=== PATIENT | female | born 1945 | race Caucasian/White ===

== ENCOUNTER → 2024-08-28 10:28 | Outpatient (REF) | payer MEDICARE, OTHER, SELFPAY ==
[2024-08-28 11:06] LABS: % Basophils 1.6 % (0-2); % Immature Granulocytes 0.5 % (0-0.5); % Lymphocytes 35.5 % (20.5-51.1); % Monocytes 8.6 % (1.7-9.3); % Neutrophils 46.8 % (42.2-75.2); Absolute Basophils 0.1 10^3/uL (0-0.2); Absolute Eosinophils 0.4 10^3/uL (0-0.7); Absolute Monocytes 0.5 10^3/uL (0.1-0.6); Absolute Neutrophils 2.6 10^3/uL (1.4-6.5); Hematocrit 32.9 % (37.0-47.0); Hemoglobin 10.9 g/dL (12.0-16.0); Mean Corp Hgb Conc. 33.1 g/dL (33.0-37.0); Mean Corpuscular Hgb 28.6 pg (27.0-31.0); Mean Corpuscular Volume 86.4 fL (81.0-99.0); Mean Platelet Volume 10.8 fL (7.4-10.4); Nucleated Red Blood Cells % 0 %; Platelet Count 207 10^3/uL (130-400); Red Blood Cell Count 3.81 10^6/uL (4.20-5.40); Red Cell Dist. Width 13.1 % (11.5-14.5); White Blood Cell Count 5.6 10^3/uL (4.8-10.8)
[2024-08-28 11:35] LABS: Glycohemoglobin (HgbA1c) 6.9 % (4.0-5.6)
[2024-08-28 14:02] LABS: ALT (SGPT) 34 U/L (0-35); AST (SGOT) 35 U/L (14-36); Albumin 3.7 g/dl (3.5-5.0); Alkaline Phosphatase 46 U/L (38-126); Blood Urea Nitrogen 30 mg/dl (7-17); Calcium 8.6 mg/dl (8.4-10.2); Carbon Dioxide 22 mmol/L (22-30); Chloride 110 mmol/L (98-107); Glucose 124 mg/dl (70-99); HDL Cholesterol 62 mg/dl; LDL Cholesterol, Calculated 81 mg/dl; Magnesium 1.7 mg/dl (1.6-2.3); Potassium 5.3 mmol/L (3.5-5.1); Sodium 138 mmol/L (135-145); Total Bilirubin 0.4 mg/dl (0.2-1.3); Total Cholesterol 166 mg/dl (50-199); Total Protein 5.9 g/dl (6.3-8.2); Triglyceride 115 mg/dl (10-149); Very Low Density Lipoprotein 23 mg/dl (0-30); eGFR 58.02
[2024-08-28 14:46] LABS: Free T4 1.07 ng/dl (0.78-2.19); Vitamin D, 25-OH*** 94.9 ng/mL (30-80)
[2024-08-28 14:59] LABS: TSH 4.53 uIU/ml (0.47-4.68)
== END ==
LOC: OLABHEARBC 10:28
PROVIDERS: ATTENDING PHYSICIAN Hospitalist
DX: I10 Essential (primary) hypertension (principal); E03.9 Hypothyroidism, unspecified; M81.0 Age-related osteoporosis without current pathological fracture; N18.9 Chronic kidney disease, unspecified; E78.5 Hyperlipidemia, unspecified; I25.10 Atherosclerotic heart disease of native coronary artery without angina pectoris; E11.9 Type 2 diabetes mellitus without complications; E55.9 Vitamin D deficiency, unspecified
CPT/HCPCS: 36415; 80053; 80061; 82306; 83036; 83735; 84439; 84443; 85025

== ENCOUNTER → 2024-11-16 13:08 | Outpatient (REF) | payer MEDICARE, OTHER, SELFPAY | LOC: HWRAD 13:08 | PROVIDERS: ATTENDING PHYSICIAN Hospitalist | DX: M25.572 Pain in left ankle and joints of left foot (principal) | CPT/HCPCS: 73600; 73620 ==

== ENCOUNTER 2024-12-08 06:11 | Emergency (ER) | payer MEDICARE, OTHER, SELFPAY ==
[2024-12-08 06:14] VITALS: BP 168/60; BMI 23.9
[2024-12-08 07:20] LABS: ALT (SGPT) 34 U/L (0-35); AST (SGOT) 36 U/L (14-36); Albumin 4.4 g/dl (3.5-5.0); Alkaline Phosphatase 52 U/L (38-126); Blood Urea Nitrogen 58 mg/dl (7-17); Calcium 9.6 mg/dl (8.4-10.2); Carbon Dioxide 23 mmol/L (22-30); Chloride 105 mmol/L (98-107); Estimated Creatinine Clearance 37 ml/min; Glucose 176 mg/dl (70-99); Potassium 4.0 mmol/L (3.5-5.1); Sodium 137 mmol/L (135-145); Total Protein 7.0 g/dl (6.3-8.2); eGFR 46.62
[2024-12-08 07:25] LABS: Hematocrit 33.5 % (37.0-47.0); Hemoglobin 11.2 g/dL (12.0-16.0); Mean Corp Hgb Conc. 33.4 g/dL (33.0-37.0); Mean Corpuscular Volume 82.7 fL (81.0-99.0); Nucleated Red Blood Cells % 0 %; Platelet Count 231 10^3/uL (130-400); Red Cell Dist. Width 13.4 % (11.5-14.5)
--- NOTE | 2024-12-08 07:56 | ED.GENMED ---
History of Present Illness
General
Chief Complaint: Fall
Source: patient
Time Seen by Provider: 12/08/24 06:36
History of Present Illness
History of Present Illness:
Note:
CHIEF COMPLAINT(S)
Fall with left elbow and left knee injury.
HISTORY OF PRESENT ILLNESS
The patient reports experiencing a fall last night around midnight after feeling dizzy upon getting out of bed to go to the bathroom. The patient did not reach the bathroom as she got dizzy and subsequently fell. She did not lose consciousness
during the fall. She did not hit her head and reports no neck or back pain. Instead, she sustained injuries to her left elbow and left knee.
The patient mentions having experienced a prior fall approximately one month ago when she was coming out of the dining room, resulting in bruises. Since that time, she has been undergoing physical and occupational therapy for about two weeks.
She has been feeling overwhelmed and stressed following the of a close friend about one month ago. Due to the friends demanding nature towards the end, the patient felt very worn down and neglected self-care, leading her to fall previously and
now again.
The patient is currently not experiencing dizziness and denies having black or bloody stools, chest pain, or shortness of breath. She mentions having a known history of aortic systolic contraction murmur.
PAST MEDICAL AND SURGICAL HISTORY
The patient reports a known history of an aortic systolic contraction murmur.
SOCIAL DETERMINANTS AFFECTING HEALTH
The patient experienced significant stress related to caregiving responsibilities for her friend who a month ago. This stress led to neglect in self-care, contributing to her current physical state and recent falls.
PHYSICAL EXAM
General: Alert, no acute distress.
Skin: Warm, dry.
Head: Normocephalic, atraumatic. No outward signs of trauma.
Neck: Supple, trachea midline.
Eye Ears, nose, mouth and throat: Oral mucosa moist.
Cardiovascular: Regular heart rate, with a systolic murmur noted. No edema.
Respiratory: Clear lung sounds with no labored breathing.
Gastrointestinal : Abdomen nondistended.
Musculoskeletal: Left elbow and knee injuries noted, both with full range of motion.
Neurological: Alert and oriented to person, place, time, and situation, No focal neurological deficit observed.
Psychiatric: Cooperative, appropriate mood & affect.
PROBLEM LIST
Acute Problems:
- Fall with injury to the left elbow and knee
- Dizziness
Chronic Problems:
- Known aortic systolic contraction murmur
PLAN
- Obtain x-rays of the left elbow and left knee to assess for possible fractures or other injuries.
- Perform basic laboratory work, including Complete Blood Count (CBC) and C-Reactive Protein (CRP) to check hemoglobin levels, chemistries, and kidney function.
- Provide ice and consider Tylenol for pain management as needed.
DIFFERENTIAL DIAGNOSIS
The Differential Diagnosis includes, in no particular order and is not limited to:
- Orthostatic hypotension
- Benign paroxysmal positional vertigo
- Cardiovascular syncope
- Dehydration
- Anemia
- Inner ear infection
- Low blood sugar
- Medication side effects
- Anxiety-related dizziness
- Vestibular neuritis
EKG
My independent EKG interpretation is:
- Time of EKG: Not specified
- Rhythm: Normal sinus rhythm
- Heart Rate: 67 beats per minute
- [place]: Normal axis
- Intervals: Normal
- Notable Findings: None specified
Disposition:
SUMMARY OF ENCOUNTER
The patient, a 79-year-old female, presented after experiencing a fall. She felt dizzy upon rising from bed to urinate, which led to her fall. During the fall, she did not lose consciousness. The cause of dizziness was uncertain, possibly
orthostatic, but cardiovascular causes seemed unlikely. The patient was mildly hypertensive at 160/60 mmHg and exhibited a normal physical exam, denying any head injury or trauma. Abrasions were noted on the skin, but she maintained normal range of
motion in the affected joints. X-rays showed no fractures. The management plan included recommending rest and outpatient follow-up.
DISPOSITION
Discharge.
ASSESSMENT
The patients dizziness leading to a fall could likely be due to orthostatic hypotension or benign causes; no apparent cardiovascular involvement was evident.
PLAN
Recommend rest and outpatient follow-up.
INDEPENDENT REVIEW OF LABS AND INTERPRETATION OF TESTS
- My independent review of CBC indicates the patients hemoglobin level is 11.2, which is consistent with her baseline.
- My independent interpretation of the knee x-ray indicates no fracture.
- My independent interpretation of the elbow x-ray indicates no fracture.
MEDICAL DECISION MAKING
- Number and Complexity of Problems Addressed: Chronic conditions affecting care include known aortic systolic contraction murmur. Differential Diagnosis includes orthostatic hypotension, benign paroxysmal positional vertigo, cardiovascular syncope,
dehydration, anemia, and low blood sugar.
- Data:
Category 1: Laboratory tests include a CBC, showing a hemoglobin level of 11.2, consistent with her baseline.
Category 2: My independent interpretation of knee and elbow x-rays show no fractures.
- Risk: Consideration of Admission/Observation: Escalation of care including admission/observation was considered given the complexity and risk of the patients presenting complaint and exam findings. However, ultimately I feel the patient is safe
for outpatient management with close follow-up. Reasoning: The work-up is reassuring, does not reveal any acute life/organ-threatening processes, patients symptoms are well controlled upon reevaluation, the reexamination is reassuring, vitals are
stable, patient agreeable with discharge, reliable for follow-up. Care significantly affected by Social Determinants of Health due to stress and self-care neglect related to caregiving responsibilities.
DIAGNOSIS
- Fall, unspecified (ICD-10-CM W19.XXXA)
- Dizziness and giddiness (ICD-10-CM R42)
- Aortic valve disorder, unspecified (ICD-10-CM I35.9)
Phy Exam
Physical Exam
Physical Exam:
.
Course
Orders/Labs/Results
Orders:
Orders
12/08/24 06:55
Elbow, 3 view, Left [CR Elbow - Left Min 3 Views ] Urgent
Comment:
Reason For Exam: fall
Knee, Left 4 or More Views [CR Knee - Left 4 Or More View*] Urgent
Comment:
Reason For Exam: fall
12/08/24 07:02
Complete Blood Count/With Diff Urgent
Comprehensive Metabolic Panel Urgent
12/08/24 07:57
Electrocardiogram (*1) Urgent
Reason for Study: Vertigo / Dizzy
EKG- Treatment ONCE
Abnormal Lab Results
12/08/24
07:02
RBC 4.05 L 10^6/uL
(4.20-5.40)
Hgb 11.2 L g/dL
(12.0-16.0)
Hct 33.5 L %
(37.0-47.0)
MPV 11.0 H fL
(7.4-10.4)
Abs Immat Gran (auto) 0.1 H 10^3/uL
(0-0.05)
Absolute Neuts (auto) 7.4 H 10^3/uL
(1.4-6.5)
Absolute Monos (auto) 0.8 H 10^3/uL
(0.1-0.6)
Lymphocytes % 15.3 L %
(20.5-51.1)
BUN 58 H mg/dl
(7-17)
Creatinine 1.2 H mg/dL
(0.6-1.0)
Glucose 176 H mg/dl
(70-99)
12/08/24 07:02
12/08/24 07:02
Vital Signs
Initial and Last Documented VS:
Initial Vital Signs
Temp Pulse Resp BP Pulse Ox
97.8 F 68 18 168/60 98
12/08/24 06:14 12/08/24 06:14 12/08/24 06:14 12/08/24 06:14 12/08/24 06:14
Last Documented Vital Signs
Temp Pulse Resp BP Pulse Ox
97.8 F 66 16 153/51 98
12/08/24 06:14 12/08/24 08:24 12/08/24 08:24 12/08/24 08:09 12/08/24 08:24
*Pulse Oximetry
SaO2: 98
Oxygen Mode of Delivery: Room air
Patient hypoxic: no
*Critical Care Note
Total Time (30-74mins, 75-104mins- exclusive of procedures): Not Applicable
ED Attending Note
-
Portions of this chart may have been created with voice recognition software.� Occasional wrong word or��sound alike� substitutions may have occurred due to the inherent limitations of voice recognition software.
Discharge Plan
Departure
Patient Disposition: Home (Routine Discharge)
Date of Disposition: 12/08/24
Time of Disposition: 07:58
Patient with high blood pressure during this ER visit?: Yes
Discharge Problem:
Fall, Contusion, Abrasion, Dizziness
Instructions: Contusion (DC), Skin Abrasions (DC), BLOOD PRESSURE
Referrals:
UNKNOWN - PT DOES,NOT KNOW [Family Provider]
Activity Restrictions/Additional Instructions:
Please rest your injuries and keep wounds clean and dry. Please see your doctor in the next 3 to 5 days for follow-up and reevaluation. Return immediately for worsening pain, changes in mentation, weakness of any kind, dizziness, chest pain,
palpitations or any other concerns.
Interventions
Interventions:
*Risk Screen - Suicide Last Done: 12/08/24 06:14
*General Assessment Last Done: 12/08/24 06:14
*Neglect/Abuse Screening Last Done: 12/08/24 06:14
*ED- Fall Risk Assessment Last Done: 12/08/24 06:14
*ED COVID-19 Vaccine History Last Done: 12/08/24 06:14
*ED Influenza Vaccine History Last Done: 12/08/24 06:14
*Nursing Disposition Last Done: 12/08/24 08:24
ED-Musculoskeletal Assessment Last Done: 12/08/24 06:34
ED- Neurological Assessment Last Done: 12/08/24 06:34
ED-Skin Assessment Last Done: 12/08/24 06:34
Discharge Date and Time
Print Language: RUSSIAN
[2024-12-08 08:09] VITALS: BP 153/51
== END 2024-12-08 08:24 | disposition home or self-care (01) ==
LOC: EMR 06:11
PROVIDERS: EMERGENCY PHYSICIAN Emergency Medicine
DX: T14.8XXA Other injury of unspecified body region, initial encounter (principal); R42 Dizziness and giddiness; R03.0 Elevated blood-pressure reading, without diagnosis of hypertension; R01.1 Cardiac murmur, unspecified; W18.39XA Other fall on same level, initial encounter; Y92.003 Bedroom of unspecified non-institutional (private) residence as the place of occurrence of the external cause
CPT/HCPCS: 99284; 73080; 73564; 80053; 85025; 93005

== ENCOUNTER → 2024-12-25 07:11 | Outpatient (REF) | payer MEDICARE, OTHER, SELFPAY | LOC: HWRCS 07:11 | DX: I70.213 Atherosclerosis of native arteries of extremities with intermittent claudication, bilateral legs (principal); E78.2 Mixed hyperlipidemia; R74.8 Abnormal levels of other serum enzymes; I25.10 Atherosclerotic heart disease of native coronary artery without angina pectoris; I20.9 Angina pectoris, unspecified | CPT/HCPCS: 78452; 93017; A9500; J2785 ==

== ENCOUNTER → 2025-01-08 09:09 | Outpatient (REF) | payer MEDICARE, OTHER, SELFPAY | LOC: HWRCS 09:09 | PROVIDERS: ATTENDING PHYSICIAN Internal Medicine Cardiovascular Disease | DX: I70.213 Atherosclerosis of native arteries of extremities with intermittent claudication, bilateral legs (principal); E78.2 Mixed hyperlipidemia; R74.8 Abnormal levels of other serum enzymes; I25.10 Atherosclerotic heart disease of native coronary artery without angina pectoris; I20.9 Angina pectoris, unspecified | CPT/HCPCS: 93306 ==